=== PATIENT | female | born 1995 | race Caucasian/White ===

== ENCOUNTER 2019-10-13 13:25 | Inpatient (IN) | payer OTHER ==
[~2019-10-13 13:25] MED LIST: Iopamidol-370 76% 500 ML 1 ML ONE
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
[2019-10-13] MEDS ORDERED: Ondansetron PF 4 MG/2 ML Vial ONE ×3 (13:52→16:45)
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
[2019-10-13] MEDS ORDERED: Lidocaine 1% w/Epinephrine 1:100K 20 ML VIAL ONE (13:54)
[2019-10-13] MEDS ORDERED: Fentanyl 100 MCG/2 ML VIAL ONE ×2 (13:56→16:33)
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
[2019-10-13 14:17] LABS: #Basophils 0.1 thou/uL (0.0-0.2); #Eosinphils 0.1 thou/uL (0.0-0.7); #Lymphocytes 2.8 thou/uL (1.20-3.40); #Monocytes 0.9 thou/uL (0.11-0.59); #Neutrophils 11.7 thou/uL (1.40-6.50); %Basophils 0.6 % (0.0-1.0); %Eosinophils 0.9 % (0.0-10.0); %Lymphocytes 17.7 % (21.0-51.0); %Monocytes 5.9 % (0.0-10.0); %Neutrophils 74.9 % (42.0-75.0); Hemoglobin 11.6 g/dL (12.0-16.0); Mean Corpuscular HGB CONC 33.3 g/dL (32.0-36.0); Mean Corpuscular Hemoglobin 32.6 pg (27.0-31.0); Mean Corpuscular Volume 97.9 fL (78.0-98.0); Mean Platelet Volume 7.1 fL (7.4-10.4); Platelet Count 237 thou/uL (130-400); Red Blood Cell (RBC) Count 3.57 mill/uL (4.20-5.40); White Blood Cell (WBC) Count 15.6 thou/uL (4.8-10.8)
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
[2019-10-13 14:21] LABS: BHCG - Serum Negative (NEGATIVE); Pregs Control Background? CLEAR/WHITE (CLR/WHITE); Pregs Control Bar Appear? YES (CONTROL BAR)
[2019-10-13] MEDS ORDERED: Boostrix 0.5 ML VIAL ONE (14:25)
[2019-10-13 14:27] LABS: ALT (SGPT) 588 U/L (8-55); AST (SGOT) 574 U/L (5-34); Albumin 3.9 g/dL (3.5-5.0); Alkaline Phosphatase 40 U/L (40-110); Anion Gap 13 mmol/L (10-20); BUN (Urea Nitrogen) 19 mg/dL (7.0-18.7); Bilirubin, Total 0.6 mg/dL (0.2-1.2); Calc. Creatinine Clearance 0 mL/min (70-130); Calcium 7.9 mg/dL (7.8-10.44); Carbon Dioxide 20 mmol/L (22-29); Chloride 107 mmol/L (98-107); Estimated GFR-MDRD 82; Globulin 2.4 g/dL (2.4-3.5); Glucose 102 mg/dL (70-105); Potassium 3.3 mmol/L (3.5-5.1); Protein, Total 6.3 g/dL (6.0-8.3); Sodium 137 mmol/L (136-145)
[2019-10-13 14:47] LABS: Bacteria/HPF None Seen HPF (None Seen); Bilirubin Negative (Negative); Blood, Urine 3+ (Negative); Clarity Clear (Clear); Glucose, Urine (Dipstick) Normal (Negative); Ketone, Urine Negative (Negative); Leukocyte Negative Leu/uL (Negative); Nitrite Negative (Negative); Protein, Urine (Dipstick) 70 mg/dL (Neg-Trace); RBC/HPF 21-50 HPF (0-3); Specific Gravity, Urine 1.019 (1.002-1.036); Squamous Epithelial 0-3 HPF (0-3); Urobilinogen Normal mg/dL (Less than 2)
[2019-10-13] MEDS ORDERED: Morphine 4 MG/ML VIAL ONE (14:57)
--- NOTE | 2019-10-13 15:30 | RAD ---
EXAM: UPRIGHT PORTABLE CHEST ONE VIEW: 10/13/19 HISTORY: Chest tube placement. COMPARISON: 10/13/19. FINDINGS: Left chest tube placed with the tip extending into the left lung apex with marked improvement in the appearance of the left sided pneumothorax with a very small amount of remaining pleural air noted. Ev idence for some bilateral rib fractures. Heart size is within normal limits. IMPRESSION: Left chest tube placement with a very small residual left sided pleural air but marked improved from the prior prechest tube study. POS: RRE
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
[2019-10-13] MEDS ORDERED: Dextrose 50% Abboject 50 ML SYRINGE SLOW IVP PRN (20:00)
[2019-10-13] MEDS ORDERED: Ondansetron ODT 4 MG TAB PO PRN (20:00)
[2019-10-13] MEDS ORDERED: Dextrose 5% in Water 1,000 ML IV PRN (20:00)
[2019-10-13] MEDS ORDERED: traMADol HCl 50 MG TAB PO PRN (20:00)
[2019-10-13] MEDS: Acetaminophen 325 MG TAB PO SCH (20:29)
[2019-10-13] MEDS: Famotidine/PF 20 mg/2ml Vial SLOW IVP SCH (20:29)
[2019-10-13] MEDS: traMADol HCl 50 MG TAB PO PRN (20:30)
[2019-10-13 20:35] LABS: Hemoglobin 15.4 g/dL (12.0-16.0)
[2019-10-13] MEDS: Ondansetron PF 4 MG/2 ML Vial IVP PRN (20:45)
[2019-10-13] MEDS: Sodium Chloride 0.9% 1,000 ML IV SCH (20:53)
--- NOTE | 2019-10-13 21:21 | RAD ---
LEFT CLAVICLE TWO VIEWS: 10/13/19 HISTORY: Clavicle fracture. There is a displaced proximal clavicle fracture. This involves the very proximal aspect of the clavic ular shaft. It is approximately a shaft width displaced. Sternoclavicular and AC joints are unremark able. IMPRESSION: Proximal clavicular fracture. Chest tube is in place. A very small apical pneumothorax is incidentall y noted. POS: OFF
[2019-10-13 22:26] LABS: Lactic Acid 1.4 mmol/L (0.5-2.2)
[2019-10-14] MEDS: Cyclobenzaprine 10 MG TAB PO PRN ×3 (00:01→18:45)
[2019-10-14] MEDS: Acetaminophen 325 MG TAB PO SCH ×2 (02:30→07:40)
[2019-10-14] MEDS: traMADol HCl 50 MG TAB PO PRN ×4 (02:30→20:12)
[2019-10-14 02:45] LABS: #Lymphocytes 0.8 thou/uL (1.20-3.40); #Monocytes 0.3 thou/uL (0.11-0.59); #Neutrophils 6.2 thou/uL (1.40-6.50); %Basophils 0.2 % (0.0-1.0); %Eosinophils 0.1 % (0.0-10.0); %Lymphocytes 10.4 % (21.0-51.0); %Monocytes 4.1 % (0.0-10.0); %Neutrophils 85.1 % (42.0-75.0); Hemoglobin 13.4 g/dL (12.0-16.0); Mean Corpuscular HGB CONC 34.2 g/dL (32.0-36.0); Mean Corpuscular Hemoglobin 33.3 pg (27.0-31.0); Mean Corpuscular Volume 97.4 fL (78.0-98.0); Mean Platelet Volume 7.3 fL (7.4-10.4); Platelet Count 168 thou/uL (130-400); RBC Distribution Width 11.4 % (11.5-14.5); Red Blood Cell (RBC) Count 4.03 mill/uL (4.20-5.40); White Blood Cell (WBC) Count 7.3 thou/uL (4.8-10.8)
[2019-10-14 03:10] LABS: Anion Gap 13 mmol/L (10-20); BUN (Urea Nitrogen) 11 mg/dL (7.0-18.7); Calc. Creatinine Clearance 138 mL/min (70-130); Calcium 7.2 mg/dL (7.8-10.44); Carbon Dioxide 18 mmol/L (22-29); Chloride 108 mmol/L (98-107); Estimated GFR-MDRD Greater than 90; Glucose 102 mg/dL (70-105); Potassium 3.9 mmol/L (3.5-5.1); Sodium 135 mmol/L (136-145)
[2019-10-14] MEDS: Sodium Chloride 0.9% 1,000 ML IV SCH ×3 (04:32→20:05)
[2019-10-14] MEDS: Ibuprofen 200 MG TAB PO PRN ×2 (05:40→20:13)
[2019-10-14] MEDS: Ondansetron PF 4 MG/2 ML Vial IVP PRN ×2 (06:40→22:56)
[2019-10-14 06:51] LABS: Magnesium 1.7 mg/dL (1.6-2.6); Phosphorus 3.9 mg/dL (2.3-4.7)
[2019-10-14] MEDS: Gabapentin 300 MG CAP PO SCH ×2 (07:41→20:10)
[2019-10-14] MEDS: Famotidine/PF 20 mg/2ml Vial SLOW IVP SCH ×2 (07:41→20:06)
--- NOTE | 2019-10-14 09:08 | RAD ---
PORTABLE CHEST 1 VIEW: DATE: 10/14/2019. TIME: 4:23 AM. HISTORY: Chest tube placement followup. COMPARISON: Previous day. FINDINGS: Bilateral rib fractures and left-sided chest tube are again seen. The heart size is normal. There i s a suggestion of a tiny left apical pneumothorax. Fracture of the left clavicle is redemonstrated. POS: OFF
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
[2019-10-14] MEDS ORDERED: Acetaminophen/Codeine 30-300mg Tablet PO PRN (10:34)
[2019-10-14] MEDS: Acetaminophen/Codeine 30-300mg Tablet PO PRN ×2 (11:21→18:03)
[2019-10-14] MEDS: Phenazopyridine HCl 100 MG TAB PO SCH ×2 (11:22→17:55)
[2019-10-14 12:34] LABS: SARS-CoV-2 MS2 Positive; SARS-CoV-2 N Gene Negative; SARS-CoV-2 S Gene Negative; SARS-CoV-2 by NAA Not Detected (NotDetected); SARS-CoV-2 orf1ab Negative
[2019-10-14 14:52] LABS: Hemoglobin 15.7 g/dL (12.0-16.0)
[2019-10-14 16:05] LABS: Bacteria/HPF None Seen HPF (None Seen); Bilirubin Negative (Negative); Blood, Urine 2+ (Negative); Clarity Clear (Clear); Glucose, Urine (Dipstick) Normal (Negative); Ketone, Urine 100 mg/dL (Negative); Leukocyte 75 Leu/uL (Negative); Nitrite Negative (Negative); Protein, Urine (Dipstick) 30 mg/dL (Neg-Trace); Specific Gravity, Urine 1.024 (1.002-1.036); Urobilinogen Normal mg/dL (Less than 2)
[2019-10-14 16:10] LABS: Urine Culture Reflex No No
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
[2019-10-14] MEDS ORDERED: diphenhydrAMINE 25 MG CAP PO PRN (20:54)
[2019-10-14] MEDS ORDERED: Melatonin 3 MG TAB PO PRN (20:54)
[2019-10-15] MEDS: Cyclobenzaprine 10 MG TAB PO PRN (03:00)
[2019-10-15] MEDS: Sodium Chloride 0.9% 1,000 ML IV SCH (03:01)
[2019-10-15] MEDS: Acetaminophen/Codeine 30-300mg Tablet PO PRN (05:29)
[2019-10-15 05:32] LABS: Anion Gap 12 mmol/L (10-20); BUN (Urea Nitrogen) 8 mg/dL (7.0-18.7); Calc. Creatinine Clearance 156 mL/min (70-130); Calcium 7.3 mg/dL (7.8-10.44); Carbon Dioxide 13 mmol/L (22-29); Chloride 111 mmol/L (98-107); Estimated GFR-MDRD Greater than 90; Glucose 98 mg/dL (70-105); Magnesium 1.8 mg/dL (1.6-2.6); Phosphorus 1.8 mg/dL (2.3-4.7); Potassium 4.7 mmol/L (3.5-5.1); Sodium 131 mmol/L (136-145)
[2019-10-15] MEDS: Phenazopyridine HCl 100 MG TAB PO SCH ×3 (06:17→18:20)
[2019-10-15] MEDS ORDERED: Sodium Phosphate 30 MMOL in Sodium Chloride 0.9% 250 ML 250 ML IVPB SCH (06:30)
[2019-10-15] MEDS ORDERED: Magnesium 2 GM/50 ML 2 GM in Premix Bag 1 BAG IVPB SCH (06:30)
[2019-10-15] MEDS: Gabapentin 300 MG CAP PO SCH ×3 (07:50→22:47)
[2019-10-15] MEDS: Famotidine/PF 20 mg/2ml Vial SLOW IVP SCH ×2 (07:50→22:46)
[2019-10-15 08:40] LABS: Hemoglobin 16.2 g/dL (12.0-16.0); Mean Corpuscular HGB CONC 31.9 g/dL (32.0-36.0); Mean Corpuscular Hemoglobin 31.7 pg (27.0-31.0); Mean Corpuscular Volume 99.5 fL (78.0-98.0); Mean Platelet Volume 7.2 fL (7.4-10.4); Platelet Count 204 thou/uL (130-400); RBC Distribution Width 11.8 % (11.5-14.5); White Blood Cell (WBC) Count 4.3 thou/uL (4.8-10.8)
[2019-10-15] MEDS: traMADol HCl 50 MG TAB PO PRN (09:14)
[2019-10-15] MEDS: Ibuprofen 200 MG TAB PO PRN (09:14)
--- NOTE | 2019-10-15 09:15 | RAD ---
CHEST 1 VIEW: HISTORY: Chest tube. COMPARISON: Radiograph from prior day. FINDINGS: Left-sided thoracostomy tube is in place with relatively large anterior and basilar pneumothorax. No significant tension. The thoracostomy tube tip projects over the posterior 2nd rib. The left medial clavicular fracture i s similar. IMPRESSION: The thoracostomy tube tip projects over the posterior 2nd rib. The left medial clavicular fracture i s similar. IMPRESSION: Although this exam is stated as an upright exam, the left apical pleural line is not well seen, altho ugh there is felt to be a relatively large anterior and basilar pneumothorax remaining given the rela tively high-grade lucency of the left hemithorax as well as absent lung markings in the left base. POS: HOME
[2019-10-15 09:19] LABS: Band 23 % (5-11); Lymphocytes 14 % (21-51); MDiff Complete? YES; Monocytes 21 % (0-10); Neutrophil 42 % (42-75); Platelet Morphology Comment Appears Adequate
[2019-10-15] MEDS ORDERED: PROPOFOL 200 MG/20 ML VIAL ONE (10:19)
[2019-10-15] MEDS ORDERED: Succinylcholine Chloride 20 MG/ML 10 ml SYRINGE FS ONE (10:19)
[2019-10-15] MEDS ORDERED: Ondansetron PF 4 MG/2 ML Vial ONE (10:19)
[2019-10-15] MEDS ORDERED: diphenhydrAMINE 50 MG/ML VIAL ONE (10:19)
[2019-10-15] MEDS ORDERED: Lidocaine 1% PF 5 ML VIAL ONE (10:19)
[2019-10-15] MEDS ORDERED: Rocuronium Bromide 10 MG/ML (10ML VIAL) ONE (10:19)
[2019-10-15] MEDS ORDERED: Dexamethasone 20 MG/5 ML VIAL ONE (10:19)
[2019-10-15] MEDS ORDERED: PHENYLEPHRINE-NS 100 MCG/ML 10 ML SYRINGE ONE (10:19)
[2019-10-15] MEDS ORDERED: Sodium Chloride 0.9% 1,000 ML IV SCH ×3 (10:30→18:00)
--- NOTE | 2019-10-15 11:00 | RAD ---
CHEST 1 VIEW: HISTORY: Pneumothorax. COMPARISON: Radiograph of same day. FINDINGS: There is improved left upper lobe aeration. The left clavicular fracture is similar. No mediastinal shift. Relative paucity of bowel gas within the abdomen. IMPRESSION: 1. Improved left upper lung aeration. 2. Paucity of bowel gas in the upper abdomen. Two views of the abdomen recommended. POS: HOME
[2019-10-15] MEDS ORDERED: Acetaminophen/Codeine 30-300mg Tablet PO PRN (11:18)
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
[2019-10-15] MEDS: Ibuprofen 200 MG TAB PO SCH ×2 (11:36→22:47)
[2019-10-15] MEDS: Acetaminophen 325 MG TAB PO SCH ×2 (11:36→18:20)
[2019-10-15] MEDS: Morphine 2 MG/ML VIAL SLOW IVP PRN ×2 (11:36→20:18)
[2019-10-15] MEDS: Lidocaine 5% Patch TD SCH (11:58)
[2019-10-15] MEDS ORDERED: Iopamidol-370 76% 500 ML 1 ML ONE (11:59)
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
[2019-10-15] MEDS: traMADol HCl 50 MG TAB PO SCH ×2 (14:03→22:47)
[2019-10-15] MEDS: Ondansetron PF 4 MG/2 ML Vial IVP PRN (17:01)
[2019-10-15 18:57] LABS: Hemoglobin 15.6 g/dL (12.0-16.0); Mean Corpuscular HGB CONC 33.2 g/dL (32.0-36.0); Mean Corpuscular Hemoglobin 32.9 pg (27.0-31.0); Mean Corpuscular Volume 99.2 fL (78.0-98.0); Platelet Count 187 thou/uL (130-400); RBC Distribution Width 11.8 % (11.5-14.5); Red Blood Cell (RBC) Count 4.74 mill/uL (4.20-5.40); White Blood Cell (WBC) Count 3.7 thou/uL (4.8-10.8)
[2019-10-15 19:12] LABS: Anion Gap 13 mmol/L (10-20); BUN (Urea Nitrogen) 10 mg/dL (7.0-18.7); CK (CPK) 2768 U/L (29-168); Calc. Creatinine Clearance 140 mL/min (70-130); Calcium 7.5 mg/dL (7.8-10.44); Carbon Dioxide 15 mmol/L (22-29); Chloride 107 mmol/L (98-107); Estimated GFR-MDRD Greater than 90; Glucose 106 mg/dL (70-105); Magnesium 2.2 mg/dL (1.6-2.6); Phosphorus 2.2 mg/dL (2.3-4.7); Potassium 3.9 mmol/L (3.5-5.1); Sodium 131 mmol/L (136-145)
[2019-10-15] MEDS ORDERED: Potassium Phosphate 15 MMOL in Sodium Chloride 0.9% 250 ML 250 ML IVPB SCH (20:00)
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
[2019-10-15] MEDS ORDERED: Albumin 5% 500 ML ONE (20:46)
[2019-10-15] MEDS ORDERED: Midazolam HCl 2 mg/2 ml Vial ONE (20:46)
[2019-10-15] MEDS ORDERED: HYDROmorphone 0.5 MG/0.5 ML SYRINGE ONE (20:46)
[2019-10-15] MEDS ORDERED: Fentanyl 250 MCG/5 ML VIAL ONE (20:46)
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
[2019-10-15] MEDS ORDERED: cefOXitin Sodium/Dextrose 2 GM/50 ML BAG ONE (21:37)
[2019-10-15] MEDS ORDERED: Phenylephrine 10 MG/ML VIAL ONE ×2 (21:53→23:19)
[2019-10-15] MEDS ORDERED: Ventilator Sedation Protocol 1 EACH FS ONE (23:18)
[2019-10-15] MEDS ORDERED: Propofol BOLUS 1,000 MG/100 ML VIAL IV PRN (23:20)
[2019-10-15] MEDS ORDERED: Fentanyl BOLUS 250 ML IVPB PRN (23:20)
[2019-10-15] MEDS ORDERED: DISCONTINUE PREVIOUS NARCOTIC PAIN MEDICATIONS AND BENZODIAZEPINES FS SCH (23:20)
[2019-10-15] MEDS ORDERED: Lorazepam 2 MG/ML VIAL SLOW IVP PRN (23:20)
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
[2019-10-16 00:41] LABS: Actual Bicarbonate (HCO3a) 15.5 mEq/L (22-28); Base Excess (BEa) -9.2 mEq/L (-2.0 to +3.0); CO2 Tension 30.7 mmHg (35.0-45.0); Calcium, Ionized (arterial) 1.06 mmol/L (1.12-1.30); Carboxyhemoglobin (COHb) 0.5 gm% (0.0-3.0); Hemoglobin (Hb) 14.6 g/dL (12.0-16.0); O2 Tension (PaO2), arterial 149.4 mmHg (80.0-100.0); Potassium - ABG Lab 3.82 mmol/L (3.70-5.30); pH, Arterial 7.32 (7.35-7.45)
[2019-10-16 00:45] LABS: Puncture Site LBA
[2019-10-16 00:46] LABS: ALV-art Gradient 97.425 (0-20)
[2019-10-16] MEDS: Cefepime 2 GM in Sodium Chloride 0.9% 100 ML IVPB SCH ×3 (00:53→23:08)
[2019-10-16] MEDS: fentaNYL Citrate/PF 2,000 MCG in Sodium Chloride 0.9% 60 ML IV SCH ×2 (01:03→19:26)
[2019-10-16] MEDS: Lidocaine Patch Removal 1 EACH TOP SCH ×2 (01:12→23:08)
[2019-10-16] MEDS ORDERED: Sodium Chloride 0.9% 1,000 ML IV SCH (01:30)
[2019-10-16] MEDS: Sodium Chloride 0.9% 1,000 ML IV SCH ×2 (01:43→08:45)
[2019-10-16 04:11] LABS: Anion Gap 12 mmol/L (10-20); BUN (Urea Nitrogen) 10 mg/dL (7.0-18.7); Band 39 % (5-11); CK (CPK) 1652 U/L (29-168); Calc. Creatinine Clearance 178 mL/min (70-130); Calcium 6.6 mg/dL (7.8-10.44); Carbon Dioxide 15 mmol/L (22-29); Chloride 111 mmol/L (98-107); Estimated GFR-MDRD Greater than 90; Glucose 98 mg/dL (70-105); Hemoglobin 13.6 g/dL (12.0-16.0); Lymphocytes 8 % (21-51); MDiff Complete? YES; Magnesium 1.9 mg/dL (1.6-2.6); Mean Corpuscular HGB CONC 33.2 g/dL (32.0-36.0); Mean Corpuscular Hemoglobin 32.6 pg (27.0-31.0); Mean Corpuscular Volume 98.3 fL (78.0-98.0); Mean Platelet Volume 7.4 fL (7.4-10.4); Metamyelocyte 3 % (0-0); Monocytes 6 % (0-10); Neutrophil 44 % (42-75); Platelet Count 165 thou/uL (130-400); Platelet Morphology Comment Appears Adequate; RBC Distribution Width 11.8 % (11.5-14.5); Red Blood Cell (RBC) Count 4.17 mill/uL (4.20-5.40); Sodium 134 mmol/L (136-145); White Blood Cell (WBC) Count 4.7 thou/uL (4.8-10.8)
[2019-10-16 04:12] LABS: Anion Gap 11 mmol/L (10-20); BUN (Urea Nitrogen) 9 mg/dL (7.0-18.7); Calc. Creatinine Clearance 178 mL/min (70-130); Calcium 6.6 mg/dL (7.8-10.44); Carbon Dioxide 15 mmol/L (22-29); Chloride 111 mmol/L (98-107); Estimated GFR-MDRD Greater than 90; Glucose 99 mg/dL (70-105); Magnesium 1.9 mg/dL (1.6-2.6); Phosphorus 2.3 mg/dL (2.3-4.7); Phosphorus 2.4 mg/dL (2.3-4.7); Potassium 3.9 mmol/L (3.5-5.1); Sodium 133 mmol/L (136-145)
[2019-10-16 06:51] LABS: Actual Bicarbonate (HCO3a) 13.4 mEq/L (22-28); Base Excess (BEa) -11.2 mEq/L (-2.0 to +3.0); CO2 Tension 27.1 mmHg (35.0-45.0); Calcium, Ionized (arterial) 1.08 mmol/L (1.12-1.30); Carboxyhemoglobin (COHb) 0.5 gm% (0.0-3.0); Hemoglobin (Hb) 13.1 g/dL (12.0-16.0); O2 Tension (PaO2), arterial 128.1 mmHg (80.0-100.0); Potassium - ABG Lab 4.17 mmol/L (3.70-5.30); pH, Arterial 7.31 (7.35-7.45)
[2019-10-16 07:00] LABS: ALV-art Gradient 87.575 (0-20); Puncture Site RRAD
[2019-10-16] MEDS ORDERED: Calcium Chloride 1 GM/10 ML Abboject SYRINGE IVP SCH (08:45)
[2019-10-16] MEDS: Famotidine/PF 20 mg/2ml Vial SLOW IVP SCH ×2 (08:45→20:12)
--- NOTE | 2019-10-16 09:52 | RAD ---
PORTABLE CHEST 1 VIEW: DAET: 10/16/2019. TIME: 4:58 AM. HISTORY: Respiratory failure. FINDINGS: Comparison is made with the exam of the previous day. Interval placement of endotracheal tube is seen with tip below the level of the clavicular heads. Na sogastric and feedings tubes have been placed which can be traced into the stomach with the tip exclu ded from the film. A left-sided chest tube remains in place. No definite pneumothorax is seen on ei ther side. There is a right-sided pleural effusion with layering of fluid in the right hemithorax. Left-sided clavicular fracture is again seen. The bilateral rib fractures are better visualized on t he previous day's CT scan. POS: OFF
[2019-10-16] MEDS ORDERED: Sodium Phosphate 30 MMOL in Sodium Chloride 0.9% 250 ML 250 ML IVPB SCH (11:15)
[2019-10-16] MEDS ORDERED: Lactated Ringer's 1,000 ML IV SCH (11:15)
[2019-10-16] MEDS: Lidocaine 5% Patch TD SCH (11:52)
[2019-10-16] MEDS: Lactated Ringer's 1,000 ML IV SCH ×2 (12:30→18:28)
[2019-10-16] MEDS ORDERED: Magnesium Sulfate 2 GM in Sodium Chloride 0.9% 100 ML IVPB SCH (12:30)
[2019-10-16] MEDS ORDERED: Magnesium 2 GM/50 ML 2 GM in Premix Bag 1 BAG IVPB SCH (13:00)
[2019-10-16] MEDS ORDERED: Potassium Phosphate 30 MMOL in Sodium Chloride 0.9% 500 ML IVPB SCH (13:00)
--- NOTE | 2019-10-16 16:19 | RAD ---
PORTABLE CHEST: History: Follow up left sided pneumothorax. Comparison: Earlier today. FINDINGS: Endotracheal tube is in satisfactory position. Feeding tube is seen below the hemidiaphragm. Left barbara st tube is unchanged in position. I do not appreciate any pneumothorax. Bibasilar lung changes, great er in the right base. NG tube, in addition to feeding tube, are noted. IMPRESSION: Essentially stable chest. POS: OFF
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
[2019-10-16 16:53] LABS: Base Excess -9.9 mEq/L (-2.0 to +3.0); Chloride (ABG LAB) 109 mmol/L (98-106); pH (venous) 7.36 (7.32-7.43)
[2019-10-16 16:54] LABS: Actual Bicarbonate (HCO3v) 14 mEq/L (22-28)
[2019-10-16 16:56] LABS: Hemoglobin 11.1 g/dL (12.0-16.0); Mean Corpuscular HGB CONC 32.2 g/dL (32.0-36.0); Mean Corpuscular Hemoglobin 32.1 pg (27.0-31.0); Mean Corpuscular Volume 99.6 fL (78.0-98.0); Mean Platelet Volume 7.1 fL (7.4-10.4); Platelet Count 166 thou/uL (130-400); RBC Distribution Width 11.9 % (11.5-14.5); Red Blood Cell (RBC) Count 3.47 mill/uL (4.20-5.40); White Blood Cell (WBC) Count 7.5 thou/uL (4.8-10.8)
[2019-10-16 17:12] LABS: Anion Gap 14 mmol/L (10-20); BUN (Urea Nitrogen) 9 mg/dL (7.0-18.7); CK (CPK) 1447 U/L (29-168); Calc. Creatinine Clearance 184 mL/min (70-130); Calcium 7.2 mg/dL (7.8-10.44); Carbon Dioxide 15 mmol/L (22-29); Chloride 110 mmol/L (98-107); Estimated GFR-MDRD Greater than 90; Glucose 92 mg/dL (70-105); Potassium 4.5 mmol/L (3.5-5.1); Sodium 134 mmol/L (136-145)
[2019-10-16 17:21] LABS: Band 41 % (5-11); Dohle Bodies SLIGHT; Lymphocytes 5 % (21-51); MDiff Complete? YES; Metamyelocyte 8 % (0-0); Monocytes 4 % (0-10); Neutrophil 42 % (42-75); Platelet Morphology Comment Appears Adequate; Polychromasia SLIGHT = 2-3 cells (100X) (0-2/hpf); Reflex for Review?? YES; Toxic Granulation MODERATE; Vacuoles SLIGHT
[2019-10-16] MEDS: Propofol 1,000 MG/100 ML VIAL IV PRN (18:00)
[2019-10-16] MEDS: Morphine 2 MG/ML VIAL SLOW IVP PRN (20:11)
[2019-10-16] MEDS: Enoxaparin Sodium 40 MG/0.4 ML SYRINGE SC SCH (20:12)
[2019-10-17] MEDS: Propofol 1,000 MG/100 ML VIAL IV PRN (00:24)
[2019-10-17] MEDS: Lactated Ringer's 1,000 ML IV SCH ×3 (03:19→21:17)
[2019-10-17 06:19] LABS: Hemoglobin 9.7 g/dL (12.0-16.0); Mean Corpuscular Hemoglobin 32.3 pg (27.0-31.0); Mean Corpuscular Volume 97.9 fL (78.0-98.0); Mean Platelet Volume 6.9 fL (7.4-10.4); Platelet Count 143 thou/uL (130-400); RBC Distribution Width 11.8 % (11.5-14.5); White Blood Cell (WBC) Count 7.9 thou/uL (4.8-10.8)
[2019-10-17 06:33] LABS: Chloride 110 mmol/L (98-107); Potassium 3.9 mmol/L (3.5-5.1); Sodium 136 mmol/L (136-145)
[2019-10-17 06:34] LABS: Calcium 7.5 mg/dL (7.8-10.44); Glucose 73 mg/dL (70-105)
[2019-10-17 06:36] LABS: Anion Gap 14 mmol/L (10-20); Carbon Dioxide 16 mmol/L (22-29)
[2019-10-17 06:38] LABS: BUN (Urea Nitrogen) 10 mg/dL (7.0-18.7); Calc. Creatinine Clearance 183 mL/min (70-130); Estimated GFR-MDRD Greater than 90
[2019-10-17 06:40] LABS: CK (CPK) 1149 U/L (29-168); Magnesium 1.8 mg/dL (1.6-2.6); Phosphorus 1.8 mg/dL (2.3-4.7)
[2019-10-17 06:43] LABS: Band 49 % (5-11); Eosinophils 2 % (0-10); Hypochromia SLIGHT = 6-15 cells (100X) (0-5/hpf); Lymphocytes 12 % (21-51); MDiff Complete? YES; Monocytes 2 % (0-10); Neutrophil 35 % (42-75); Platelet Morphology Comment Appears Adequate
[2019-10-17 07:45] LABS: Actual Bicarbonate (HCO3a) 16.1 mEq/L (22-28); CO2 Tension 28.3 mmHg (35.0-45.0); Calcium, Ionized (arterial) 1.17 mmol/L (1.12-1.30); Carboxyhemoglobin (COHb) 0.3 gm% (0.0-3.0); Hemoglobin (Hb) 9.8 g/dL (12.0-16.0); O2 Tension (PaO2), arterial 169.3 mmHg (80.0-100.0); Potassium - ABG Lab 3.76 mmol/L (3.70-5.30); pH, Arterial 7.37 (7.35-7.45)
[2019-10-17] MEDS ORDERED: Calcium Chloride 1 GM/10 ML Abboject SYRINGE IVP SCH ×2 (07:45→21:00)
[2019-10-17 07:46] LABS: ALV-art Gradient 43.125 (0-20); Puncture Site RB
--- NOTE | 2019-10-17 07:53 | RAD ---
EXAM: Single view of the chest HISTORY: Chest tube for pneumothorax COMPARISON: 10/16/2019 FINDINGS: Single view of the chest shows a normal sized cardiomediastinal silhouette. The lines and tubes are unchanged in position. No pneumothorax is appreciated. There is a veil like opacity in the right thorax which likely represents a small layering pleural effusion. There is a left clavicle fracture. There are minimally displaced bilateral rib fractures. IMPRESSION: Stable exam
[2019-10-17] MEDS ORDERED: Potassium Phosphate 30 MMOL in Sodium Chloride 0.9% 250 ML 250 ML IVPB SCH (08:00)
[2019-10-17] MEDS ORDERED: Potassium Phosphate 30 MMOL, Magnesium Sulfate 2 GM in Sodium Chloride 0.9% 250 ML 250 ML IVPB SCH (08:00)
[2019-10-17] MEDS: Famotidine/PF 20 mg/2ml Vial SLOW IVP SCH ×2 (08:45→21:00)
[2019-10-17] MEDS ORDERED: Furosemide 20 MG/2 ML VIAL SLOW IVP SCH ×2 (09:15→18:30)
[2019-10-17] MEDS ORDERED: PROPOFOL 200 MG/20 ML VIAL ONE (09:21)
[2019-10-17] MEDS ORDERED: Ketorolac Tromethamine 30 MG/ML VIAL ONE (09:21)
[2019-10-17] MEDS ORDERED: Ondansetron PF 4 MG/2 ML Vial ONE (09:21)
[2019-10-17] MEDS ORDERED: Rocuronium Bromide 10 MG/ML (10ML VIAL) ONE (09:21)
[2019-10-17] MEDS ORDERED: Fentanyl 100 MCG/2 ML VIAL ONE (10:19)
[2019-10-17] MEDS ORDERED: metroNIDAZOLE 500 MG/100 ML BAG ONE (11:39)
[2019-10-17] MEDS ORDERED: Bacitracin Zinc Ointment 30 gm TUBE ONE (13:20)
[2019-10-17] MEDS: Morphine 2 MG/ML VIAL SLOW IVP PRN (13:51)
[2019-10-17] MEDS: Cefepime 2 GM in Sodium Chloride 0.9% 100 ML IVPB SCH ×2 (15:05→23:11)
[2019-10-17] MEDS: Lidocaine 5% Patch TD SCH (15:08)
[2019-10-17] MEDS: metroNIDAZOLE 500 MG in Premix Bag 1 BAG IVPB SCH ×2 (15:08→21:01)
[2019-10-17] MEDS: fentaNYL Citrate/PF 2,000 MCG in Sodium Chloride 0.9% 60 ML IV SCH (15:57)
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
--- NOTE | 2019-10-17 17:19 | RAD ---
KUB INDICATION: 23-year-old female with Dobbhoff tube placement COMPARISON: None FINDINGS: Bowel gas: Nonspecific but without overt appearance of obstruction. Lung bases: Clear. Additional findings: Gastric catheter projects in the region of the gastric antrum. Dobbhoff feeding tube tip projects in the region of the jejunum. Surgical suture line is seen within the left mid abdomen. Skin bret overlie the midline abdomen. Osseous structures: No acute osseous abnormality is demonstrated. IMPRESSION: 1. Gastric catheter and Dobbhoff feeding tube tip as above
[2019-10-17] MEDS ORDERED: Promethazine HCl 25 MG/ML VIAL IM PRN (18:19)
[2019-10-17] MEDS ORDERED: HYDROmorphone 10 mg/100 ml CADD IVPB PRN ×2 (18:19→18:23)
[2019-10-17] MEDS ORDERED: Naloxone HCl 0.4 mg/ml Vial IV PRN (18:19)
[2019-10-17] MEDS ORDERED: diphenhydrAMINE 50 MG/ML VIAL IM PRN (18:19)
[2019-10-17] MEDS ORDERED: diphenhydrAMINE 50 MG/ML VIAL IVP PRN (18:19)
[2019-10-17] MEDS ORDERED: Communication Order-Pharmacy FS SCH ×2 (18:30)
[2019-10-17] MEDS: Ketorolac Tromethamine 30 MG/ML VIAL IVP PRN (18:55)
[2019-10-17 20:05] LABS: Anion Gap 14 mmol/L (10-20); BUN (Urea Nitrogen) 10 mg/dL (7.0-18.7); Calc. Creatinine Clearance 168 mL/min (70-130); Calcium 7.9 mg/dL (7.8-10.44); Carbon Dioxide 17 mmol/L (22-29); Chloride 109 mmol/L (98-107); Estimated GFR-MDRD Greater than 90; Glucose 70 mg/dL (70-105); Magnesium 1.5 mg/dL (1.6-2.6); Phosphorus 2.7 mg/dL (2.3-4.7); Potassium 3.8 mmol/L (3.5-5.1); Sodium 136 mmol/L (136-145)
[2019-10-17] MEDS: Enoxaparin Sodium 40 MG/0.4 ML SYRINGE SC SCH (21:00)
[2019-10-17] MEDS ORDERED: Potassium Phosphate 30 MMOL, Magnesium Sulfate 4 GM in Sodium Chloride 0.9% 250 ML 250 ML IVPB SCH (21:00)
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
[2019-10-17] MEDS: Levalbuterol HCl 1.25 MG/0.5 ML NEB NEB SCH (22:08)
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
[2019-10-17] MEDS: Lidocaine Patch Removal 1 EACH TOP SCH (23:11)
[2019-10-18 05:11] LABS: Band 39 % (5-11); Eosinophils 5 % (0-10); Hemoglobin 10.1 g/dL (12.0-16.0); Lymphocytes 9 % (21-51); MDiff Complete? YES; Mean Corpuscular HGB CONC 32.4 g/dL (32.0-36.0); Mean Corpuscular Hemoglobin 32.4 pg (27.0-31.0); Mean Platelet Volume 7.7 fL (7.4-10.4); Metamyelocyte 1 % (0-0); Monocytes 3 % (0-10); Neutrophil 43 % (42-75); Platelet Count 133 thou/uL (130-400); Platelet Morphology Comment Appears Adequate; Red Blood Cell (RBC) Count 3.11 mill/uL (4.20-5.40); White Blood Cell (WBC) Count 10.7 thou/uL (4.8-10.8)
[2019-10-18 05:23] LABS: Anion Gap 16 mmol/L (10-20); BUN (Urea Nitrogen) 9 mg/dL (7.0-18.7); CK (CPK) 1262 U/L (29-168); Calc. Creatinine Clearance 186 mL/min (70-130); Calcium 7.7 mg/dL (7.8-10.44); Carbon Dioxide 19 mmol/L (22-29); Chloride 107 mmol/L (98-107); Estimated GFR-MDRD Greater than 90; Glucose 69 mg/dL (70-105); Magnesium 2.2 mg/dL (1.6-2.6); Phosphorus 5.3 mg/dL (2.3-4.7); Potassium 4.5 mmol/L (3.5-5.1); Sodium 137 mmol/L (136-145)
[2019-10-18] MEDS: metroNIDAZOLE 500 MG in Premix Bag 1 BAG IVPB SCH (06:22)
[2019-10-18] MEDS: Lactated Ringer's 1,000 ML IV SCH ×3 (06:43→19:44)
--- NOTE | 2019-10-18 07:33 | RAD ---
CHEST 1 VIEW: Date: 10/18/2019 INDICATION: 23-year-old female with chest tube. COMPARISON: Prior exam dated 10/17/2019. FINDINGS: Layered pleural effusion is slightly more pronounced bilaterally, right greater than left. Left-sided chest tube is unchanged. No pneumothorax is evident. Heart size is normal. Gastric catheter and Dobb alesia feeding tube is unchanged. The patient appears to have been intervally extubated. Osseous struct ures are unchanged. IMPRESSION: 1. Interval extubation. 2. Stable left-sided chest tube without recurrent pneumothorax. 3. Layered bilateral pleural effusions. POS: BH
[2019-10-18] MEDS: Piperacillin/Tazobactam 3.375 GM in Sodium Chloride 0.9% 100 ML IVPB SCH ×3 (09:32→19:43)
[2019-10-18] MEDS: Famotidine/PF 20 mg/2ml Vial SLOW IVP SCH ×2 (09:33→19:43)
[2019-10-18] MEDS: Lidocaine 5% Patch TD SCH (12:38)
[2019-10-18 12:51] VITALS: BMI 26.6
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
[2019-10-18] MEDS ORDERED: CEFAZOLIN 2 GM in Premix Bag 1 BAG IVPB SCH (17:30)
[2019-10-18] MEDS: Levalbuterol HCl 1.25 MG/0.5 ML NEB NEB SCH (18:39)
[2019-10-18] MEDS ORDERED: Sodium Chloride For Inhalation 0.9% 3 ML NEB ONE (18:50)
[2019-10-18] MEDS: Enoxaparin Sodium 40 MG/0.4 ML SYRINGE SC SCH (19:43)
[2019-10-18] MEDS: Ondansetron PF 4 MG/2 ML Vial IVP PRN (19:43)
[2019-10-18] MEDS: Melatonin 3 MG TAB PO PRN (20:47)
[2019-10-18] MEDS ORDERED: Morphine 2 MG/ML VIAL SLOW IVP PRN (21:21)
[2019-10-18] MEDS: Lidocaine Patch Removal 1 EACH TOP SCH (23:23)
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
[2019-10-19] MEDS: Ketorolac Tromethamine 30 MG/ML VIAL IVP PRN (00:43)
[2019-10-19] MEDS: Cyclobenzaprine 10 MG TAB PO PRN (00:43)
[2019-10-19] MEDS: Piperacillin/Tazobactam 3.375 GM in Sodium Chloride 0.9% 100 ML IVPB SCH ×4 (02:02→20:32)
[2019-10-19] MEDS: Morphine 4 MG/ML VIAL SLOW IVP PRN ×3 (02:04→22:05)
[2019-10-19] MEDS: Levalbuterol HCl 1.25 MG/0.5 ML NEB NEB SCH ×3 (06:46→19:06)
[2019-10-19] MEDS ORDERED: Sodium Chloride For Inhalation 0.9% 3 ML NEB ONE (06:47)
[2019-10-19 08:26] LABS: Anion Gap 19 mmol/L (10-20); BUN (Urea Nitrogen) 6 mg/dL (7.0-18.7); CK (CPK) 1403 U/L (29-168); Calc. Creatinine Clearance 195 mL/min (70-130); Calcium 7.1 mg/dL (7.8-10.44); Carbon Dioxide 14 mmol/L (22-29); Chloride 109 mmol/L (98-107); Estimated GFR-MDRD Greater than 90; Glucose 56 mg/dL (70-105); Magnesium 1.6 mg/dL (1.6-2.6); Phosphorus 2.4 mg/dL (2.3-4.7); Potassium 3.8 mmol/L (3.5-5.1); Sodium 138 mmol/L (136-145)
[2019-10-19] MEDS: Famotidine/PF 20 mg/2ml Vial SLOW IVP SCH ×2 (08:31→20:31)
[2019-10-19] MEDS ORDERED: Dextrose 5% in Water 1,000 ML IV SCH (09:00)
[2019-10-19] MEDS ORDERED: Furosemide 20 MG/2 ML VIAL SLOW IVP SCH (09:00)
[2019-10-19] MEDS ORDERED: Magnesium 2 GM/50 ML 2 GM in Premix Bag 1 BAG IVPB SCH (09:00)
--- NOTE | 2019-10-19 09:02 | RAD ---
CHEST 1 VIEW: INDICATION: History of chest tube placement. COMPARISON: Prior exam dated 10/18/2019. FINDINGS: There has been interval removal of the left-sided chest tube. Small left apical pneumothorax remains . There is a layered right-sided pleural effusion that is stable-appearing. Gastric catheter and fe eding tube are unchanged. Left-sided clavicle fracture. Bilateral rib fractures are similar-appeari ng. IMPRESSION: 1. Recurrent small left apical pneumothorax following chest tube removal. Findings were called to Sa oksana Suarez RN, at 5:38 a.m. on 10/19/2019. 2. Persistent right-sided pleural effusion. 3. Persistent left-sided clavicle fracture and bilateral rib fractures. CODE CR POS: BH
[2019-10-19] MEDS: Dextrose 5%-Lactated Ringers 1,000 ML IV SCH ×2 (09:03→20:32)
[2019-10-19 09:20] LABS: Band 20 % (5-11); Eosinophils 3 % (0-10); Lymphocytes 8 % (21-51); MDiff Complete? YES; Mean Corpuscular Hemoglobin 31.7 pg (27.0-31.0); Mean Platelet Volume 6.9 fL (7.4-10.4); Metamyelocyte 1 % (0-0); Monocytes 6 % (0-10); Neutrophil 62 % (42-75); Platelet Count 157 thou/uL (130-400); Platelet Morphology Comment Appears Adequate; RBC Distribution Width 12.1 % (11.5-14.5); RBC Morphology Normal; Red Blood Cell (RBC) Count 3.47 mill/uL (4.20-5.40); White Blood Cell (WBC) Count 14.6 thou/uL (4.8-10.8)
[2019-10-19] MEDS ORDERED: Succinylcholine Chloride 20 MG/ML 10 ml SYRINGE FS ONE (10:06)
[2019-10-19] MEDS ORDERED: PROPOFOL 200 MG/20 ML VIAL ONE (10:06)
[2019-10-19] MEDS ORDERED: Bupivacaine HCl 0.5%/Epinephrine 1:200,000/PF 30 ml Vial ONE (10:06)
[2019-10-19] MEDS ORDERED: Lidocaine 1% PF 5 ML VIAL ONE (10:06)
[2019-10-19] MEDS ORDERED: Rocuronium Bromide 10 MG/ML (10ML VIAL) ONE (10:06)
[2019-10-19] MEDS ORDERED: Dexamethasone 20 MG/5 ML VIAL ONE (10:06)
[2019-10-19] MEDS ORDERED: Ondansetron PF 4 MG/2 ML Vial ONE (10:06)
[2019-10-19] MEDS ORDERED: Metoclopramide HCl 10 MG/2 ML VIAL ONE (10:06)
--- NOTE | 2019-10-19 11:00 | PRG ---
DATE OF SERVICE: 10/18/2019 The patient has underwent surgery for bowel perforation and small bowel resection. She has had two small bowel repairs, one colon repair. She is doing fairly well today. I came in to discuss with the patient and her aunt the fracture of the proximal left clavicle. The aunt states that there is some concern about the displacement of the clavicle and she wanted to discuss possible repair of the clavicle. I sat down with the patient's aunt and went over the x-rays from when she first came in as well as from this morning. There has not been any change in the alignment. The two main fragments of bone are displaced with the distal fragment being significantly inferior, but there is a bony fragment in between and I explained to the aunt that with the thickness of the periosteum, the patient even with this displacement has a very high chance of this healing on its own. On the other hand, if they wanted to try to increase the percentage of the fracture healing, then I would not be in objection of performing open reduction and internal fixation while she is here. This would give it a higher chance of healing and particularly in more anatomic position. She understands that there are other potential problems with performing surgery including infection, damage to blood vessels or nerves, but I would be prepared to do the surgery if that is what the patient and the family decide and I could do that as early as tomorrow if they decide that soon enough. If not, then potentially I can do the surgery on Wednesday and I am happy to perform the surgery even sometime this weekend if needed. The aunt will talk with Darby and with other family members and I will be happy to answer any other questions. Job ID: [id number]
[2019-10-19] MEDS ORDERED: traMADol HCl 50 MG TAB PER TUBE SCH (11:45)
[2019-10-19] MEDS ORDERED: Midazolam HCl 2 mg/2 ml Vial ONE (12:07)
[2019-10-19] MEDS ORDERED: Fentanyl 100 MCG/2 ML VIAL ONE ×3 (12:07→15:32)
[2019-10-19] MEDS: Acetaminophen 500 MG TAB PER TUBE SCH ×2 (12:36→18:17)
[2019-10-19] MEDS: Lidocaine 5% Patch TD SCH (12:36)
[2019-10-19] MEDS ORDERED: Piperacillin/Tazobactam 3.375 GM VIAL ONE (13:16)
[2019-10-19] MEDS ORDERED: Sodium Chloride 0.9% 100 ML ONE (13:16)
[2019-10-19] MEDS ORDERED: Promethazine HCl 25 MG/ML VIAL SLOW IVP PRN (14:37)
[2019-10-19] MEDS ORDERED: Ketorolac Tromethamine 30 MG/ML VIAL IVP PRN (14:37)
[2019-10-19] MEDS ORDERED: Meperidine HCl/PF 25 MG/ML VIAL SLOW IVP PRN (14:37)
[2019-10-19] MEDS ORDERED: Ondansetron HCl/PF 4 MG/2 ML Vial IVP PRN (14:37)
[2019-10-19] MEDS ORDERED: Promethazine HCl 25 MG/ML VIAL IM PRN (14:37)
--- NOTE | 2019-10-19 15:07 | RAD ---
Intraoperative imaging of the left clavicle: 10/19/2019 COMPARISON: None HISTORY: Fracture status post ORIF FINDINGS: Previously noted fracture of the left clavicular shaft has been treated with a screw and pl ate fixation. IMPRESSION: ORIF of the left clavicular shaft.
[2019-10-19] MEDS: Gabapentin 300 MG CAP PO SCH ×2 (15:16→20:31)
--- NOTE | 2019-10-19 15:51 | OP ---
DATE OF PROCEDURE: 10/19/2019 PREOPERATIVE DIAGNOSIS: Fracture of the proximal shaft of the left clavicle. POSTOPERATIVE DIAGNOSIS: Fracture of the proximal shaft of the left clavicle. PROCEDURES PERFORMED: Open reduction and internal fixation of proximal shaft of the left clavicle. ANESTHESIA: General. DESCRIPTION OF PROCEDURE: The patient has been receiving IV antibiotics. She was taken to the operating room, placed in the supine position. Satisfactory general anesthesia was performed. The patient was then placed in a modified beach-chair position. The anterior aspect of the left chest wall over the clavicle was sterilely prepped and draped in usual fashion. Incision was made approximately 2.5 inches in length over the proximal shaft of the left clavicle. Blunt and sharp dissection was made down to the more proximal portion of the clavicle. Periosteal elevation was performed. Blunt dissection was made and the distal shaft was located inferiorly. It was brought up, reduced and then held reduced with a bone clamp. A Synthes 2.7 DCP plate was then placed over the superior aspect of the clavicle and 2.7 cortical screw was placed in the most lateral hole in the clavicle and in the plate and also in the more medial hole. C-arm was used to verify good placement of the plate and screws. Two additional locking screws were placed medial to the fracture in the plate. They were 2.7 locking screws. Two additional 2.7 locking screws were also placed lateral to the fracture. This provided six cortices on each side of the fracture. The C-arm again was used to verify good alignment of the fracture and proper placement of the plate and screws. The wound was then copiously irrigated with antibiotic solution. The platysma and periosteum were all closed using #1 Vicryl in interrupted [id number] sutures. The fat and subcutaneous tissue were closed with 2-0 Vicryl and this reapproximated the skin. The skin was then Steri-Stripped. Sterile dressing was applied. The patient was awakened, extubated, and transferred to recovery room in stable condition. ESTIMATED BLOOD LOSS: 50 mL. COMPLICATIONS: None. Job ID: [id number]
--- NOTE | 2019-10-19 16:05 | RAD ---
Chest one view HISTORY: Left pneumothorax. Follow-up. COMPARISON: 10/19/2019. Earlier exam on the same date. FINDINGS: Cardiac silhouette is magnified by projection. Partially obscured by pleural fluid that is overall stable on the right and slightly increased on the left. Bibasilar atelectasis again demonstrated. Mediastinum is midline. Enteric tubes remain in place. No pneumothorax is apparent on today's study. Internal fixation of the left clavicle now evident. IMPRESSION : Interval resolution of left apical pneumothorax. Slight increase in left pleural fluid. Operative fixation of the left clavicle fracture.
[2019-10-19] MEDS ORDERED: Chloraseptic Spray 180 ml Bottle PO PRN (16:20)
[2019-10-19] MEDS: traMADol HCl 50 MG TAB PO SCH (20:31)
[2019-10-19] MEDS: Enoxaparin Sodium 40 MG/0.4 ML SYRINGE SC SCH (20:31)
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
[2019-10-19] MEDS: Ibuprofen 600 MG TAB PO SCH (22:04)
[2019-10-19] MEDS: Lidocaine Patch Removal 1 EACH TOP SCH (22:08)
[2019-10-20] MEDS: Acetaminophen 500 MG TAB PER TUBE SCH ×4 (00:28→17:02)
[2019-10-20] MEDS: Melatonin 3 MG TAB PO PRN ×2 (00:28→21:14)
[2019-10-20] MEDS: Ondansetron PF 4 MG/2 ML Vial IVP PRN ×3 (00:43→21:31)
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
[2019-10-20] MEDS: Morphine 4 MG/ML VIAL SLOW IVP PRN ×3 (02:05→18:30)
[2019-10-20] MEDS: traMADol HCl 50 MG TAB PO SCH ×4 (02:05→21:14)
[2019-10-20] MEDS: Piperacillin/Tazobactam 3.375 GM in Sodium Chloride 0.9% 100 ML IVPB SCH ×4 (02:07→21:12)
[2019-10-20 02:47] LABS: Band 19 % (5-11); Hemoglobin 9.5 g/dL (12.0-16.0); Lymphocytes 5 % (21-51); MDiff Complete? YES; Mean Corpuscular HGB CONC 33.4 g/dL (32.0-36.0); Mean Corpuscular Hemoglobin 32.7 pg (27.0-31.0); Mean Corpuscular Volume 97.9 fL (78.0-98.0); Mean Platelet Volume 7.3 fL (7.4-10.4); Metamyelocyte 1 % (0-0); Monocytes 4 % (0-10); Myelocyte 1 % (0-0); Neutrophil 70 % (42-75); Platelet Count 160 thou/uL (130-400); RBC Distribution Width 11.9 % (11.5-14.5); Toxic Granulation SLIGHT; White Blood Cell (WBC) Count 14.4 thou/uL (4.8-10.8)
[2019-10-20 03:08] LABS: Anion Gap 14 mmol/L (10-20); BUN (Urea Nitrogen) 6 mg/dL (7.0-18.7); Calc. Creatinine Clearance 202 mL/min (70-130); Calcium 7.3 mg/dL (7.8-10.44); Carbon Dioxide 21 mmol/L (22-29); Chloride 106 mmol/L (98-107); Estimated GFR-MDRD Greater than 90; Glucose 169 mg/dL (70-105); Magnesium 1.9 mg/dL (1.6-2.6); Phosphorus 3.9 mg/dL (2.3-4.7); Potassium 3.7 mmol/L (3.5-5.1); Sodium 137 mmol/L (136-145)
[2019-10-20] MEDS: Dextrose 5%-Lactated Ringers 1,000 ML IV SCH (06:16)
[2019-10-20] MEDS: Ibuprofen 600 MG TAB PO SCH ×3 (06:17→21:14)
[2019-10-20] MEDS: Levalbuterol HCl 1.25 MG/0.5 ML NEB NEB SCH ×3 (07:20→18:45)
--- NOTE | 2019-10-20 07:50 | RAD ---
XR Chest 1 View Portable History: Chest tube placement Comparison: Radiograph prior day Findings: There is a weighted feeding tube and a section enteric tube in place with tip below diaphra gm although out of field of view. Incomplete evaluation of surgical clips in the mid abdomen. Free air in the abdomen. Elevation of the right hemidiaphragm. Large right and small left pleural effusions. Left clavicular plate-screw fixation. No endotracheal tube is appreciated. Impression: 1. Moderate free air under the hemidiaphragms, as expected post recent surgery. 2. Large effusions and compressive atelectasis within the lung bases. 3. Feeding and suction tube tip is below diaphragm although out of field of view.
[2019-10-20] MEDS ORDERED: Dextrose 5% in Water 1,000 ML IV PRN (07:52)
[2019-10-20] MEDS ORDERED: Magnesium 2 GM/50 ML 2 GM in Premix Bag 1 BAG IVPB SCH (08:00)
[2019-10-20] MEDS ORDERED: Magnesium Sulfate 2 GM in Sodium Chloride 0.9% 100 ML IVPB SCH (08:00)
[2019-10-20] MEDS ORDERED: Potassium Phosphate 15 MMOL in Sodium Chloride 0.9% 250 ML 250 ML IVPB SCH (08:00)
[2019-10-20] MEDS: Famotidine/PF 20 mg/2ml Vial SLOW IVP SCH ×2 (09:28→21:13)
[2019-10-20] MEDS: Furosemide 20 MG/2 ML VIAL SLOW IVP SCH ×2 (09:28→21:13)
[2019-10-20] MEDS: Gabapentin 300 MG CAP PO SCH ×3 (09:29→21:14)
[2019-10-20] MEDS: Lidocaine 5% Patch TD SCH (13:23)
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
--- NOTE | 2019-10-20 16:51 | PRG ---
DATE OF SERVICE: 10/20/2019 SUBJECTIVE: The patient is sitting up in chair. She has good pain control. She has no new complaints. OBJECTIVE: VITAL SIGNS: Blood pressure 112/78, heart rate 91, respiratory rate 25, and O2 saturation 94%. EXTREMITIES: The left upper extremity is neurovascularly intact. LABORATORY: Hemoglobin 9.5, hematocrit 28.4. I reviewed with the patient the surgery that was performed, i.e., the open reduction and internal fixation of the left proximal clavicular fracture using plate and screws. The patient should protect the area, allow the fracture to heal. She should avoid any heavy pushing, pulling, or lifting, but this will not be a problem since she has multiple rib fractures anyway. When she is out of bed, she may want to consider using an arm sling to help support the arm. Job ID: [id number]
[2019-10-20] MEDS: Cyclobenzaprine 10 MG TAB PO PRN (17:02)
[2019-10-20] MEDS: Enoxaparin Sodium 40 MG/0.4 ML SYRINGE SC SCH (21:12)
[2019-10-21] MEDS: Dextrose 5%-Lactated Ringers 1,000 ML IV SCH ×2 (02:16→16:32)
[2019-10-21] MEDS: traMADol HCl 50 MG TAB PO SCH ×4 (02:17→21:56)
[2019-10-21] MEDS: Acetaminophen 500 MG TAB PER TUBE SCH ×4 (02:17→17:38)
[2019-10-21] MEDS: Lidocaine Patch Removal 1 EACH TOP SCH (02:17)
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
[2019-10-21] MEDS: Piperacillin/Tazobactam 3.375 GM in Sodium Chloride 0.9% 100 ML IVPB SCH ×3 (04:04→19:59)
[2019-10-21] MEDS: Levalbuterol HCl 1.25 MG/0.5 ML NEB NEB SCH ×3 (05:06→18:24)
[2019-10-21 06:02] LABS: #Eosinphils 0.2 thou/uL (0.0-0.7); #Lymphocytes 2.1 thou/uL (1.20-3.40); #Monocytes 0.9 thou/uL (0.11-0.59); #Neutrophils 10.6 thou/uL (1.40-6.50); %Basophils 0.1 % (0.0-1.0); %Eosinophils 1.7 % (0.0-10.0); %Lymphocytes 15.2 % (21.0-51.0); %Monocytes 6.6 % (0.0-10.0); %Neutrophils 76.4 % (42.0-75.0); Hemoglobin 10.3 g/dL (12.0-16.0); Mean Corpuscular HGB CONC 33.1 g/dL (32.0-36.0); Mean Corpuscular Hemoglobin 32.7 pg (27.0-31.0); Mean Corpuscular Volume 98.7 fL (78.0-98.0); Platelet Count 233 thou/uL (130-400); RBC Distribution Width 12.2 % (11.5-14.5); Red Blood Cell (RBC) Count 3.16 mill/uL (4.20-5.40); White Blood Cell (WBC) Count 13.9 thou/uL (4.8-10.8)
[2019-10-21 06:35] LABS: Anion Gap 13 mmol/L (10-20); BUN (Urea Nitrogen) 5 mg/dL (7.0-18.7); Calc. Creatinine Clearance 198 mL/min (70-130); Calcium 7.3 mg/dL (7.8-10.44); Carbon Dioxide 28 mmol/L (22-29); Chloride 105 mmol/L (98-107); Estimated GFR-MDRD Greater than 90; Glucose 75 mg/dL (70-105); Magnesium 1.8 mg/dL (1.6-2.6); Phosphorus 2.9 mg/dL (2.3-4.7); Potassium 2.9 mmol/L (3.5-5.1); Sodium 143 mmol/L (136-145)
[2019-10-21] MEDS ORDERED: Potassium Phosphate 30 MMOL in Sodium Chloride 0.9% 250 ML 250 ML IVPB SCH ×2 (06:45→21:00)
[2019-10-21] MEDS ORDERED: Magnesium 2 GM/50 ML 2 GM in Premix Bag 1 BAG IVPB SCH (06:45)
[2019-10-21] MEDS: Famotidine/PF 20 mg/2ml Vial SLOW IVP SCH ×2 (08:49→21:56)
[2019-10-21] MEDS: Gabapentin 300 MG CAP PO SCH ×3 (08:50→21:57)
--- NOTE | 2019-10-21 10:05 | RAD ---
PORTABLE CHEST: Date: 10/21/2019 HISTORY: CCU follow-up. Removal of ET tube. Comparison made to prior exam of 10/20/2019. FINDINGS/IMPRESSION: The NG tube has been removed. There continues to be bilateral effusions and bibasilar atelectasis or infiltrates. Right rib fractures have been previously described. No evidence of significant pneumotho rax. No significant interval change noted. POS: AGW
[2019-10-21] MEDS: Ibuprofen 600 MG TAB PO SCH ×3 (10:08→21:56)
[2019-10-21] MEDS: Lidocaine 5% Patch TD SCH ×2 (12:00→12:04)
--- NOTE | 2019-10-21 13:14 | PRG ---
DATE OF SERVICE: 10/21/2019 SUBJECTIVE: The patient has good pain control. She is sitting up in a chair. She has had no problems or concerns, where the surgical site over the clavicle. OBJECTIVE: VITAL SIGNS: She has been afebrile, pulse 105, respiratory rate 16, blood pressure 99/66, and O2 saturation 98% on room air. LABORATORY DATA: Laboratory shows white count 13.9, hemoglobin 10.3, hematocrit 31.2. Her potassium is low at 2.9. Incision over the proximal aspect of the left clavicle was healing well. Steri-Strips were in place. Chest x-ray was obtained today and shows the plate and screws are in good position. PLAN: The patient has an arm sling for the left upper extremity. She is receiving potassium to correct that. She can gradually increase her activities as tolerated and the patient is discharged. She will follow up in my office in 2 weeks from discharge. Job ID: [id number]
[2019-10-21] MEDS: Ondansetron PF 4 MG/2 ML Vial IVP PRN (13:29)
[2019-10-21] MEDS ORDERED: Sodium Chloride For Inhalation 0.9% 3 ML NEB NEB PRN (14:12)
--- NOTE | 2019-10-21 15:25 | EKG ---
Test Reason : Blood Pressure : / mmHG Vent. Rate : 086 BPM Atrial Rate : 086 BPM P-R Int : 138 ms QRS Dur : 074 ms QT Int : 388 ms P-R-T Axes : 051 081 058 degrees QTc Int : 464 ms Normal sinus rhythm Nonspecific ST abnormality Abnormal ECG Confirmed by LYNNE ARNOLD DO ([id number]), photography editor DUY MARRUFO ([id number]) on 10/21/2019 3:24:30 PM Referred By: Confirmed By:LYNNE ARNOLD DO
[2019-10-21 18:40] LABS: Anion Gap 14 mmol/L (10-20); BUN (Urea Nitrogen) 4 mg/dL (7.0-18.7); Calc. Creatinine Clearance 175 mL/min (70-130); Calcium 7.6 mg/dL (7.8-10.44); Carbon Dioxide 28 mmol/L (22-29); Chloride 103 mmol/L (98-107); Estimated GFR-MDRD Greater than 90; Glucose 99 mg/dL (70-105); Magnesium 2.2 mg/dL (1.6-2.6); Phosphorus 2.8 mg/dL (2.3-4.7); Potassium 3.1 mmol/L (3.5-5.1); Sodium 142 mmol/L (136-145)
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
[2019-10-21] MEDS: Enoxaparin Sodium 40 MG/0.4 ML SYRINGE SC SCH (21:55)
[2019-10-22] MEDS: Piperacillin/Tazobactam 3.375 GM in Sodium Chloride 0.9% 100 ML IVPB SCH ×5 (00:51→21:04)
[2019-10-22] MEDS: Ondansetron PF 4 MG/2 ML Vial IVP PRN ×3 (00:53→15:50)
[2019-10-22] MEDS: Acetaminophen 500 MG TAB PER TUBE SCH ×5 (00:53→23:07)
[2019-10-22] MEDS: traMADol HCl 50 MG TAB PO SCH ×4 (00:53→21:05)
[2019-10-22] MEDS: Lidocaine Patch Removal 1 EACH TOP SCH ×2 (01:18→23:06)
[2019-10-22] MEDS: Ibuprofen 600 MG TAB PO SCH ×3 (05:35→21:04)
[2019-10-22 06:36] LABS: Hemoglobin 10.3 g/dL (12.0-16.0); Mean Corpuscular HGB CONC 31.3 g/dL (32.0-36.0); Mean Corpuscular Hemoglobin 31.4 pg (27.0-31.0); Mean Platelet Volume 7.2 fL (7.4-10.4); Platelet Count 304 thou/uL (130-400); RBC Distribution Width 12.4 % (11.5-14.5); Red Blood Cell (RBC) Count 3.28 mill/uL (4.20-5.40); White Blood Cell (WBC) Count 16.5 thou/uL (4.8-10.8)
[2019-10-22 06:38] LABS: Band 13 % (5-11); Eosinophils 4 % (0-10); Lymphocytes 18 % (21-51); MDiff Complete? YES; Monocytes 3 % (0-10); Toxic Granulation SLIGHT
[2019-10-22] MEDS: Levalbuterol HCl 1.25 MG/0.5 ML NEB NEB SCH ×3 (06:49→18:40)
[2019-10-22 07:14] LABS: Anion Gap 13 mmol/L (10-20); BUN (Urea Nitrogen) 4 mg/dL (7.0-18.7); Calc. Creatinine Clearance 206 mL/min (70-130); Calcium 7.7 mg/dL (7.8-10.44); Carbon Dioxide 26 mmol/L (22-29); Chloride 105 mmol/L (98-107); Estimated GFR-MDRD Greater than 90; Glucose 63 mg/dL (70-105); Magnesium 2.1 mg/dL (1.6-2.6); Phosphorus 4.7 mg/dL (2.3-4.7); Potassium 3.4 mmol/L (3.5-5.1); Sodium 141 mmol/L (136-145)
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
--- NOTE | 2019-10-22 07:50 | RAD ---
PORTABLE CHEST: HISTORY: Followup. COMPARISON: 10/21/19 FINDINGS: Bilateral effusions and mild bibasilar atelectasis. The upper lung posada are clear. No evidence of p neumothorax. Right rib fracture is again noted. IMPRESSION: No acute change. POS: AGW
[2019-10-22] MEDS ORDERED: Potassium Chloride 40 MEQ in Sodium Chloride 0.9% 250 ML 250 ML IVPB SCH (08:30)
[2019-10-22] MEDS: Famotidine/PF 20 mg/2ml Vial SLOW IVP SCH ×2 (08:50→21:04)
[2019-10-22] MEDS: Gabapentin 300 MG CAP PO SCH ×3 (08:58→21:04)
--- NOTE | 2019-10-22 09:48 | ULT ---
Venous duplex sonogram HISTORY: Bilateral leg pain and edema. FINDINGS: Each common femoral vein and greater saphenous junction were evaluated along with each femo ral, deep femoral, popliteal, and posterior tibial vein. There is good color and spectral Doppler flow, compression, and augmentation. IMPRESSION : Normal exam.
[2019-10-22] MEDS: Lidocaine 5% Patch TD SCH (11:10)
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
[2019-10-22] MEDS: Enoxaparin Sodium 40 MG/0.4 ML SYRINGE SC SCH (21:04)
[2019-10-23] MEDS: Piperacillin/Tazobactam 3.375 GM in Sodium Chloride 0.9% 100 ML IVPB SCH ×3 (02:57→17:00)
[2019-10-23] MEDS: traMADol HCl 50 MG TAB PO SCH ×4 (03:42→21:41)
[2019-10-23] MEDS: Acetaminophen 500 MG TAB PER TUBE SCH ×4 (04:59→23:24)
[2019-10-23] MEDS: Ibuprofen 600 MG TAB PO SCH ×3 (04:59→20:25)
[2019-10-23 05:35] LABS: Anion Gap 11 mmol/L (10-20); BUN (Urea Nitrogen) 6 mg/dL (7.0-18.7); Calc. Creatinine Clearance 198 mL/min (70-130); Calcium 7.7 mg/dL (7.8-10.44); Carbon Dioxide 25 mmol/L (22-29); Chloride 106 mmol/L (98-107); Estimated GFR-MDRD Greater than 90; Glucose 80 mg/dL (70-105); Magnesium 1.8 mg/dL (1.6-2.6); Phosphorus 4.9 mg/dL (2.3-4.7); Potassium 4.2 mmol/L (3.5-5.1); Sodium 138 mmol/L (136-145)
[2019-10-23 06:18] LABS: Band 15 % (5-11); Eosinophils 1 % (0-10); Hemoglobin 9.2 g/dL (12.0-16.0); Lymphocytes 18 % (21-51); MDiff Complete? YES; Mean Corpuscular HGB CONC 32.1 g/dL (32.0-36.0); Mean Corpuscular Hemoglobin 31.5 pg (27.0-31.0); Mean Corpuscular Volume 98.2 fL (78.0-98.0); Mean Platelet Volume 7.6 fL (7.4-10.4); Metamyelocyte 2 % (0-0); Monocytes 6 % (0-10); Platelet Count 302 thou/uL (130-400); RBC Distribution Width 12.4 % (11.5-14.5); Red Blood Cell (RBC) Count 2.91 mill/uL (4.20-5.40)
--- NOTE | 2019-10-23 07:42 | RAD ---
EXAM: Single view of the chest HISTORY: Chest tube placement. Pleural effusions. COMPARISON: 10/22/2019 FINDINGS: Single view of the chest shows a normal sized cardiomediastinal silhouette. There are small stable bilateral pleural effusions with adjacent atelectasis. Left clavicular hardware is seen. IMPRESSION: Stable bilateral pleural effusions
[2019-10-23] MEDS: Levalbuterol HCl 1.25 MG/0.5 ML NEB NEB SCH ×2 (07:56→15:20)
[2019-10-23] MEDS: Famotidine/PF 20 mg/2ml Vial SLOW IVP SCH (08:31)
[2019-10-23] MEDS: Gabapentin 300 MG CAP PO SCH ×3 (08:32→20:25)
[2019-10-23] MEDS: Ondansetron PF 4 MG/2 ML Vial IVP PRN (08:57)
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
[2019-10-23] MEDS: Enoxaparin Sodium 40 MG/0.4 ML SYRINGE SC SCH (20:24)
[2019-10-23] MEDS: Famotidine 20 MG TAB PO SCH (20:25)
[2019-10-23] MEDS: Amoxicillin/Potassium Clav 875 MG TAB PO SCH (20:25)
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
[2019-10-23] MEDS: Lidocaine Patch Removal 1 EACH TOP SCH (23:24)
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
[2019-10-24] MEDS: traMADol HCl 50 MG TAB PO SCH ×2 (03:32→09:17)
[2019-10-24 05:36] LABS: #Basophils 0.1 thou/uL (0.0-0.2); #Eosinphils 0.2 thou/uL (0.0-0.7); #Lymphocytes 2.2 thou/uL (1.20-3.40); #Neutrophils 10.6 thou/uL (1.40-6.50); %Basophils 0.4 % (0.0-1.0); %Eosinophils 1.2 % (0.0-10.0); %Lymphocytes 15.9 % (21.0-51.0); %Monocytes 7.1 % (0.0-10.0); %Neutrophils 75.5 % (42.0-75.0); Hemoglobin 9.5 g/dL (12.0-16.0); Mean Corpuscular HGB CONC 32.4 g/dL (32.0-36.0); Mean Corpuscular Hemoglobin 31.6 pg (27.0-31.0); Mean Corpuscular Volume 97.7 fL (78.0-98.0); Mean Platelet Volume 7.4 fL (7.4-10.4); Platelet Count 430 thou/uL (130-400); RBC Distribution Width 12.4 % (11.5-14.5)
[2019-10-24 05:48] LABS: Anion Gap 12 mmol/L (10-20); BUN (Urea Nitrogen) 7 mg/dL (7.0-18.7); Calc. Creatinine Clearance 191 mL/min (70-130); Carbon Dioxide 24 mmol/L (22-29); Chloride 106 mmol/L (98-107); Estimated GFR-MDRD Greater than 90; Glucose 92 mg/dL (70-105); Magnesium 1.8 mg/dL (1.6-2.6); Phosphorus 4.4 mg/dL (2.3-4.7); Sodium 138 mmol/L (136-145)
[2019-10-24] MEDS: Acetaminophen 500 MG TAB PER TUBE SCH ×2 (05:53→12:16)
[2019-10-24] MEDS: Ibuprofen 600 MG TAB PO SCH (05:54)
[2019-10-24] MEDS: Famotidine 20 MG TAB PO SCH (09:04)
[2019-10-24] MEDS: Gabapentin 300 MG CAP PO SCH (09:04)
[2019-10-24] MEDS: Amoxicillin/Potassium Clav 875 MG TAB PO SCH (09:05)
[2019-10-24 10:51] LABS: Neutrophil 58 % (42-75)
[2019-10-24 12:10] LABS: Neutrophil 62 % (42-75)
[2019-10-24] MEDS: Lidocaine 5% Patch TD SCH (12:23)
[2019-10-24 12:45] VITALS: BP 109/70; TEMP 98.2
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
== END 2019-10-24 17:22 | disposition home or self-care (01) | DRG 957 ==
LOC: ERS 13:25 → IMCU/EMU 15:52 → SURG A 10-14 11:55 → CCU 10-15 → SURG A 10-18 16:30 → IMCU/EMU 10-19 17:12 → SURG A 10-20 11:06
PROVIDERS: ADMIT Surgery; ATTEND Surgery
PROC: 30233N1 Transfusion of Nonautologous Red Blood Cells into Peripheral Vein, Percutaneous Approach (ICD-10-PCS; 2019-10-13)
PROC: 0W9B30Z Drainage of Left Pleural Cavity with Drainage Device, Percutaneous Approach (ICD-10-PCS; 2019-10-13)
PROC: 3E0234Z Introduction of Serum, Toxoid and Vaccine into Muscle, Percutaneous Approach (ICD-10-PCS; 2019-10-13)
PROC: 0DBA0ZZ Excision of Jejunum, Open Approach (ICD-10-PCS; principal; 2019-10-15)
PROC: 0DQL0ZZ Repair Transverse Colon, Open Approach (ICD-10-PCS; 2019-10-15)
PROC: 5A1945Z Respiratory Ventilation, 24-96 Consecutive Hours (ICD-10-PCS; 2019-10-16)
PROC: 0D180Z8 Bypass Small Intestine to Small Intestine, Open Approach (ICD-10-PCS; 2019-10-17)
PROC: 3E0M05Z Introduction of Adhesion Barrier into Peritoneal Cavity, Open Approach (ICD-10-PCS; 2019-10-17)
PROC: 0PSB04Z Reposition Left Clavicle with Internal Fixation Device, Open Approach (ICD-10-PCS; 2019-10-19)
DX: S36.430A Laceration of duodenum, initial encounter (principal); K65.8 Other peritonitis; S27.0XXA Traumatic pneumothorax, initial encounter; S36.116A Major laceration of liver, initial encounter; J96.00 Acute respiratory failure, unspecified whether with hypoxia or hypercapnia; S22.43XA Multiple fractures of ribs, bilateral, initial encounter for closed fracture; D62 Acute posthemorrhagic anemia; S27.322A Contusion of lung, bilateral, initial encounter; S36.531A Laceration of transverse colon, initial encounter; E87.2 Acidosis; J90 Pleural effusion, not elsewhere classified; S42.022A Displaced fracture of shaft of left clavicle, initial encounter for closed fracture; Z20.828 Contact with and (suspected) exposure to other viral communicable diseases; E83.39 Other disorders of phosphorus metabolism; E83.51 Hypocalcemia; E83.42 Hypomagnesemia; E87.6 Hypokalemia; Z23 Encounter for immunization; V43.62XA Car passenger injured in collision with other type car in traffic accident, initial encounter; Y92.410 Unspecified street and highway as the place of occurrence of the external cause; Z78.1 Physical restraint status
CPT/HCPCS: 32551; 36415; 36416; 36430; 36600; 51702; 70450; 71045; 71260; 71275; 72125; 72170; 74018; 74177; 76000; 80048; 80053; 81001; 81003; 81015; 82550; 82805; 83605; 83735; 84100; 84703; 85007; 85025; 85027; 85060; 86850; 86900; 86901; 87086; 87635; 88307; 90471; 90715; 93005; 93970; 94002; 94003; 94640; 94760; 96365; 96366; 96372; 96374; 96375; 96376; C1713; G0390; J0670; J0690; J0692; J0694; J1100; J1170; J1200; J1650; J1885; J1940; J2060; J2250; J2270; J2370; J2405; J2543; J2704; J2765; J3010; J3475; J3480; J3490; J7030; J7050; J7612; J7620; L3650; P9016; P9045; Q9967; S0028; U0003

== ENCOUNTER 2019-11-06 15:29 | Outpatient (CLI) | payer OTHER ==
--- NOTE | 2019-11-06 16:08 | RAD ---
EXAM: Two views chest PROVIDED CLINICAL HISTORY: Rib fracture, pulmonary contusion. COMPARISON: 10/23/2019 FINDINGS: Cardiac silhouette and pulmonary vasculature are within normal limits. There is slight patchy densit y at each lung base which is 1 overall symmetric finding bilaterally and likely related to superimposition of structures including overlying soft tissue density. No corresponding abnormality i s seen on the lateral view. Bilateral pleural effusions and associated atelectasis has now resolved. No pneumothorax or pleural fluid is seen on this exam. Postoperative changes related to int ernal fixation left clavicle fracture are again seen. Right-sided rib fractures laterally are partially visualized with evidence of nondisplaced fracture of the anterior left first rib. IMPRESSION: 1. Resolution of bilateral pleural effusions and atelectasis. No acute cardiopulmonary process is sundar reciated on this exam. 2. Bilateral rib fractures. 3. Internal fixation left clavicle fracture.
== END 2019-11-06 15:30 | disposition home or self-care (01) ==
LOC: BICRAD 15:29
PROVIDERS: ATTEND Surgery
DX: S22.43XA Multiple fractures of ribs, bilateral, initial encounter for closed fracture (principal); S27.329A Contusion of lung, unspecified, initial encounter; J98.11 Atelectasis; J90 Pleural effusion, not elsewhere classified; S42.002D Fracture of unspecified part of left clavicle, subsequent encounter for fracture with routine healing; Z98.890 Other specified postprocedural states
CPT/HCPCS: 71046